=== PATIENT | female | born 1980 | race Caucasian/White ===

== ENCOUNTER → 2016-08-20 | Outpatient (CLI) | payer BC ==
--- NOTE | 2016-08-20 10:52 | RAD ---
Right foot, 3 views, 08/20/2016: History: Foot injury No fracture or dislocation is identified. There is mild spurring at the midfoot level. There is a moderate sized inferior calcaneal spur. Subcutaneous edema is evident. IMPRESSION: No acute bony abnormality is detected.
== END | disposition home or self-care (01) ==
LOC: DXRADRC 07:38
PROVIDERS: ATTEND Physician Assistant Medical
DX: M79.671 Pain in right foot (principal); S99.921D Unspecified injury of right foot, subsequent encounter; X58.XXXD Exposure to other specified factors, subsequent encounter
CPT/HCPCS: 73630